=== PATIENT | male | born 1955 | race Caucasian/White ===

== ENCOUNTER → 2016-06-11 | Outpatient (CLI) | payer OTHER ==
[2016-06-11 12:56] LABS: ESTIMATED AVERAGE GLUCOSE 120 mg/dl; HA1C FLAG Normal (Normal)
[2016-06-11 13:07] LABS: CHOLESTEROL/HDL RATIO 2.7
== END | disposition home or self-care (01) ==
LOC: C.LABBFT 07:49
PROVIDERS: ATTEND Internal Medicine
DX: E78.5 Hyperlipidemia, unspecified (principal); R73.01 Impaired fasting glucose

== ENCOUNTER → 2016-12-27 | Outpatient (CLI) | payer OTHER ==
[~2016-12-27] MED LIST: ASPI81TA28 PO; ATOR10TA88 PO; LOSA1TAB38 PO; MONT1TAB3 PO; MULT-506 PO; OMEG10007 PO
[2016-12-27 12:13] LABS: BASO % 0.5 %; BASO ABS # 0.03 K/uL (0-0.2); COMPLETE YES; EOS % 2.3 %; HEMATOCRIT 47.3 % (42-52); IG% 0.2 %; LYMPH % 23.8 %; LYMPH ABS # 1.44 K/uL (1.2-3.4); MEAN CELL VOLUME 92.9 fL (80-100); MEAN CORPUSCULAR HEMOGLOBIN 31.4 pg (25-34); MEAN CORPUSCULAR HGB CONC 33.8 g/dl (32-36); MEAN PLATELET VOLUME 9.6 fL (7.4-10.4); MONO % 11.3 %; NEUT % 61.9 %; PLATELET COUNT 189 K/uL (130-400); RED BLOOD COUNT 5.09 M/uL (4.7-6.1); WHITE BLOOD COUNT 6.04 K/uL (4.8-10.8)
[2016-12-27 12:46] LABS: ESTIMATED AVERAGE GLUCOSE 117 mg/dl; HA1C FLAG Normal (Normal)
[2016-12-27 12:52] LABS: ALT/SGPT 30 U/L (12-78); AST/SGOT 17 U/L (15-37); BLOOD UREA NITROGEN 17 mg/dl (7-18); BUN/CREATININE RATIO 15.1 (10-20); CALCIUM 9.1 mg/dl (8.5-10.1); CARBON DIOXIDE 28 mmol/L (21-32); CHLORIDE 106 mmol/L (98-107); GLUCOSE 103 mg/dl (70-99); POTASSIUM 4.4 mmol/L (3.5-5.1); SODIUM 139 mmol/L (136-145)
[2016-12-27 12:56] LABS: ALB/GLOB RATIO 1.2 (0.9-2); ALKALINE PHOSPHATASE 46 U/L (45-117)
[2016-12-27 12:58] LABS: URINE APPEARANCE CLEAR (CLEAR); URINE BILIRUBIN NEG (NEG); URINE COLOR YELLOW; URINE EPITHELIAL CELL AUTO 0-5 /lpf (0-5); URINE NITRITE NEG (NEG); URINE SPECIFIC GRAVITY 1.019 (1.000-1.030); UROBILINOGEN NEG (NEG); ZZUR CULT IF INDIC CLEAN CATCH NO
[2016-12-27 13:11] LABS: MANUAL MICROSCOPIC REQUIRED? NO; REVIEW REQ? NO
== END | disposition home or self-care (01) ==
LOC: C.LABBFT 07:38
PROVIDERS: ATTEND Internal Medicine
DX: R73.01 Impaired fasting glucose (principal); Z11.59 Encounter for screening for other viral diseases; Z12.5 Encounter for screening for malignant neoplasm of prostate

== ENCOUNTER → 2017-02-06 | Day surgery (SDC) | payer OTHER ==
[2017-01-30 13:05] VITALS: BMI 34.0
[~2017-02-06] VITALS: Ht 180.3 cm; Wt 111.4 kg
[~2017-02-06] MED LIST changes: +LIDOCAINE HCL 2% 2 ML VIAL (20MG/ML) ONE; +MIDAZOLAM HCL 1 MG/ML 2ML VIAL ONE; +ONDANSETRON INJ 2 MG/ML 2 ML VIAL ONE; +PROPOFOL IV EMULSION 10 MG/ML 20 ML VIAL IV ONE; +SODIUM CHLORIDE 0.9% 500ML 500 ML IV ONE
[2017-02-06 13:18] VITALS: Ht 180.3 cm; Wt 111.4 kg
--- NOTE | 2017-02-06 13:22 | Endo History and Physical ---
History & Physical Date of Service: Feb 06, 2017. Chief Complaint: Hematochezia Referring Physician: Dr. Cardoso History of Present Illness 62 yo CM who presents for colonoscopy secondary to hematochezia. Past Surgical History Hx Cardiac Surgery: No Hx Internal Defibrillator: No Hx Pacemaker: No Hx Abdominal Surgery: No Hx of Implantable Prosthesis: No Hx Post-Op Nausea and Vomiting: No Hx Cancer Surgery: No Hx Thoracic Surgery: No Hx Orthopedic: Yes (RT CTR) Hx Urinary Tract Surgery: Yes (LITHOTRIPSY, URETAL STENTS PLACED AND REMOVED) Family History None Social History Smoking Status: Never Smoker Hx Substance Use: No Hx Alcohol Use: Yes (OCCASIONAL) Allergies Coded Allergies: Iodinated Diagnostic Agents (Verified Allergy, Unknown, HIVES, 01/30/17) Uncoded Allergies: NUTRASWEET (Allergy, Unknown, HIVES, 01/30/17) Current Medications Reported Home Medications Medications Dose Route/Sig Max Daily Dose Days Date Category Aspirin Ec (Aspirin) 81 Mg Tab 81 Mg PO QPM 01/30/17 Reported [place]-3 (Fish Oil) 1 Ea Cap 1 Cap PO DAILY 01/30/17 Reported Multivitamin (Multivitamins) Tab 1 Tab PO DAILY 01/30/17 Reported Cozaar (Losartan Potassium) 100 Mg Tab 100 Mg PO QAM 01/30/17 Reported Singulair (Montelukast Sodium) 10 Mg Tab 10 Mg PO DAILY PRN 01/30/17 Reported Lipitor (Atorvastatin Calcium) 10 Mg Tab 10 Mg PO HS 01/30/17 Reported Vital Signs Weight (Kilograms): 111.36 Height (Feet): 5 Height (Inches): 11 Physical Exam General Appearance: WD/WN, no apparent distress Respiratory/Chest: Auscultation: breath sounds normal Cardiovascular: Heart Auscultation: RRR Abdomen: Bowel Sounds: normal Inspection & Palpation: soft, non-distended, no tenderness, guarding & rebound Assessment and Plan Assessment: 62 yo CM who presents for colonoscopy secondary to hematochezia. Plan: Proceed with colonoscopy.
--- NOTE | 2017-02-06 14:18 | GI REPORT ---
"Procedure Date: 02/06/2017 1:31 PM Procedure: Colonoscopy Indications: Hematochezia Medicines: Monitored Anesthesia Care Complications: No immediate complications. Estimated Blood Loss: Estimated blood loss: none. Procedure: Pre-Anesthesia Assessment: - Prior to the procedure, a History and Physical was performed, and patient medications and allergies were reviewed. The patient's tolerance of previous anesthesia was also reviewed. The risks and benefits of the procedure and the sedation options and risks were discussed with the patient. All questions were answered, and informed consent was obtained. Prior Anticoagulants: The patient has taken aspirin, last dose was 4 days prior to procedure. ASA Grade Assessment: II - A patient with mild systemic disease. After reviewing the risks and benefits, the patient was deemed in satisfactory condition to undergo the procedure. After I obtained informed consent, the scope was passed under direct vision. Throughout the procedure, the patient's blood pressure, pulse, and oxygen saturations were monitored continuously. The scope was introduced through the anus and advanced to the terminal ileum. The colonoscopy was performed without difficulty. The patient tolerated the procedure well. The quality of the bowel preparation was good. The terminal ileum, ileocecal valve, appendiceal orifice, and rectum were photographed. Findings: The terminal ileum contained three localized sessile, non-bleeding polyps. The polyps were 4 mm in diameter. Biopsies were taken with a cold forceps for histology. There was a medium-sized lipoma, 15 mm in diameter, in the sigmoid colon. Non-bleeding internal hemorrhoids were found during retroflexion. The hemorrhoids were small. Impression: - Three ileal polyps in the terminal ileum, |{skip}|. Biopsied. - Medium-sized lipoma in the sigmoid colon. - Non-bleeding internal hemorrhoids. Recommendation: - Resume previous diet. - Continue present medications. - Repeat colonoscopy for surveillance based on pathology results. - Return to primary care physician as previously scheduled. Sinan De La Vega, DO 02/06/2017 2:18:16 PM This report has been signed electronically. Note Initiated On: 02/06/2017 1:31 PM I attest to the content of the Intraoperative Record and orders documented therein, exceptions below"
[2017-02-06 14:40] VITALS: BP 144/99; PULSE 58; O2SAT 96
--- NOTE | 2017-02-06 14:41 | Discharge Instructions ---
Endoscopy Patient Instructions Date / Procedure(s) Performed Feb 06, 2017. Colonoscopy Allergy Information Coded Allergies: Iodinated Diagnostic Agents (Verified Allergy, Unknown, HIVES, 01/30/17) Uncoded Allergies: NUTRASWEET (Allergy, Unknown, HIVES, 01/30/17) Discharge Date / Findings Feb 06, 2017. Terminal ileum polyp Sigmoid Lipoma Internal hemorrhoids Medication Instructions Stopped Medication(s): ASPIRIN LAST DOSE 02/02/17 FISH OIL LAST DOSE MULTIVITAMINS-LASR DOSE 02/03/17 OK to resume all medications today as prescribed Reported Home Medications Medications Dose Route/Sig Max Daily Dose Days Date Category Aspirin Ec (Aspirin) 81 Mg Tab 81 Mg PO QPM 01/30/17 Reported [place]-3 (Fish Oil) 1 Ea Cap 1 Cap PO DAILY 01/30/17 Reported Multivitamin (Multivitamins) Tab 1 Tab PO DAILY 01/30/17 Reported Cozaar (Losartan Potassium) 100 Mg Tab 100 Mg PO QAM 01/30/17 Reported Singulair (Montelukast Sodium) 10 Mg Tab 10 Mg PO DAILY PRN 01/30/17 Reported Lipitor (Atorvastatin Calcium) 10 Mg Tab 10 Mg PO HS 01/30/17 Reported Provider Instructions Activity Restrictions - No exercising or heavy lifting for 24 hours. - Do not drink alcohol the day of the procedure. - Do not drive a car or operate machinery until the day after the procedure. - Do not make any important decisions or sign important papers in 24 hours after the procedure. Following Day: - Return to full activity which may include returning to work/school. Diet Start your diet with liquids and light foods (jello, soup, juice, toast). Then eat your usual diet if not nauseated. Treatment For Common After Affects For mild abdominal pain, bloating, or excessive gas: - Rest - Eat lightly - Lie on right side Follow-Up Information Follow-up with DR ALMANZA as scheduled Anesthesia Information What You Should Know You have had a procedure that required some medicine to reduce anxiety and discomfort. This treatment is called moderate sedation. After receiving the treatment, you may be sleepy, but you will be able to breathe on your own. The effects of the treatment may last for several hours. Follow these instructions along with Activity/Diet recommendations noted above: * Do NOT do anything where dizziness or clumsiness would be dangerous. * Rest quietly at home today, then you can be up and about tomorrow. * Have a responsible person stay with you the rest of today. * You may have had an I.V. today. If so, you may take the dressing off later today. Recommendations Call your doctor if: * Trouble breathing * Continuous vomiting for more than 24 hours * Temperature above 101 degrees * Severe abdominal pain or bloating * Pain not relieved by pain medicine ordered * There is increased drainage or redness from any incision * A large amount of rectal bleeding greater than 2-3 tablespoons. (If you had a polyp/s removed or have hemorrhoids, a small amount of blood - from the rectum is to be expected.) * You have any unanswered questions or concerns. IN THE EVENT OF A SERIOUS EMERGENCY, GO TO THE NEAREST EMERGENCY ROOM Your discharge instructions were prepared by provider Sinan De La Vega. Patient Instructions Signature Page Marck Reddy Patient (or Guardian) Signature/Date: I have read and understand the instructions given to me by my caregivers. Caregiver/RN/Doctor Signature/Date: The above-named patient and/or guardian has received patient instructions on this date. + Original Patient Signature Page (only) stays with chart. Please make copy for patient.
--- NOTE | 2017-02-06 14:49 | Anesthesiology Progress Note ---
Anesthesia Post Op Note Date & Time Feb 06, 2017 at 14:48 Vital Signs Pain Intensity: 0 Vital Signs Past 12 Hours Date Time Temp Pulse Resp B/P (MAP) Pulse Ox O2 Delivery O2 Flow Rate FiO2 02/06/17 14:40 58 20 144/99 (114) 96 Room Air 02/06/17 14:23 36.7 74 20 149/83 (105) 96 Room Air 02/06/17 14:08 72 20 131/74 (93) 96 Room Air 02/06/17 13:20 36.7 72 20 146/88 (107) 96 Room Air Notes Mental Status: alert / awake / arousable, participated in evaluation Pt Amnestic to Procedure: Yes Nausea / Vomiting: adequately controlled Pain: adequately controlled Airway Patency, RR, SpO2: stable & adequate BP & HR: stable & adequate Hydration State: stable & adequate Anesthetic Complications: no major complications apparent
== END | disposition home or self-care (01) ==
LOC: C.GI 13:04
PROVIDERS: ATTEND Internal Medicine
DX: K92.1 Melena (principal); K63.89 Other specified diseases of intestine; K64.8 Other hemorrhoids; I10 Essential (primary) hypertension; Z79.82 Long term (current) use of aspirin; Z79.899 Other long term (current) drug therapy; Z68.34 Body mass index [BMI] 34.0-34.9, adult; E66.9 Obesity, unspecified

== ENCOUNTER → 2017-11-18 | Outpatient (CLI) | payer OTHER ==
[~2017-11-18] MED LIST changes: +ATOR10TA82 PO; -ATOR10TA88 PO; -LIDOCAINE HCL 2% 2 ML VIAL (20MG/ML) ONE; -MIDAZOLAM HCL 1 MG/ML 2ML VIAL ONE; -ONDANSETRON INJ 2 MG/ML 2 ML VIAL ONE; -PROPOFOL IV EMULSION 10 MG/ML 20 ML VIAL IV ONE; -SODIUM CHLORIDE 0.9% 500ML 500 ML IV ONE
[2017-11-18 12:59] LABS: ALBUMIN 3.9 gm/dl (3.4-5.0); ALKALINE PHOSPHATASE 50 U/L (45-117); ALT/SGPT 30 U/L (12-78); AST/SGOT 25 U/L (15-37); BLOOD UREA NITROGEN 14 mg/dl (7-18); CALCIUM 8.8 mg/dl (8.5-10.1); CARBON DIOXIDE 26 mmol/L (21-32); CREATININE 1.23 mg/dl (0.60-1.40); GLUCOSE 96 mg/dl (70-99); POTASSIUM 4.3 mmol/L (3.5-5.1); SODIUM 136 mmol/L (136-145); TOTAL PROTEIN 7.1 gm/dl (6.4-8.2)
[2017-11-18 13:00] LABS: CHOLESTEROL 95 mg/dl (0-200); LDL CHOLESTEROL CALCULATED 36 mg/dl
[2017-11-18 13:23] LABS: HEMOGLOBIN A1C 5.9 % (4.5-5.6)
== END | disposition home or self-care (01) ==
LOC: C.LABBFT 07:25
PROVIDERS: ATTEND Physician Assistant Medical
DX: E78.5 Hyperlipidemia, unspecified (principal)